=== PATIENT | male | born 1955 | race Native Hawaiian/Other Pacific Islander ===

== ENCOUNTER 2020-09-23 10:25 | Outpatient (CLI) | payer BC, OTHER | END 2020-09-23 21:00 | disposition home or self-care (01) | LOC: LABW 10:25 | PROVIDERS: ATTEND Internal Medicine | DX: N18.4 Chronic kidney disease, stage 4 (severe) (principal) ==

== ENCOUNTER 2020-12-31 11:08 | Outpatient (CLI) | payer OTHER ==
[2020-12-31 12:04] LABS: PLATELET COUNT 257 K/uL (142-355)
[2020-12-31 12:18] LABS: POTASSIUM 3.8 mmol/L (3.6-5.2)
== END 2020-12-31 21:20 | disposition home or self-care (01) ==
LOC: LABW 11:08
PROVIDERS: ATTEND Internal Medicine
DX: E11.22 Type 2 diabetes mellitus with diabetic chronic kidney disease (principal); N18.4 Chronic kidney disease, stage 4 (severe); R53.83 Other fatigue; M10.09 Idiopathic gout, multiple sites
CPT/HCPCS: 36415; 80053; 81000; 82043; 82306; 82330; 82570; 82607; 82728; 82746; 83036; 83540; 83550; 83735; 83970; 84100; 84155; 84439; 84443; 84550; 85027; 85652; 86038; 86430

== ENCOUNTER 2021-04-18 08:21 | Outpatient (CLI) | payer OTHER ==
[2021-04-18 09:13] LABS: PLATELET COUNT 225 K/uL (142-355)
== END 2021-04-18 20:00 | disposition home or self-care (01) ==
LOC: US 08:21
PROVIDERS: ATTEND Internal Medicine
DX: E11.22 Type 2 diabetes mellitus with diabetic chronic kidney disease (principal); N18.4 Chronic kidney disease, stage 4 (severe); R53.83 Other fatigue; M19.09 Primary osteoarthritis, other specified site
CPT/HCPCS: 36415; 80053; 81000; 82043; 82306; 82330; 82570; 82607; 82728; 82746; 83036; 83540; 83550; 83735; 83970; 84100; 84155; 84439; 84443; 84550; 85027; 85652; 86038; 86430